=== PATIENT | female | born 1965 | race Native Hawaiian/Other Pacific Islander ===

== ENCOUNTER 2017-02-24 17:00 | Emergency (ER) | payer OTHER ==
[~2017-02-24] VITALS: Ht 170.2 cm; Wt 90.7 kg
== END 2017-02-24 19:24 | disposition home or self-care (01) ==
LOC: ED 17:00
DX: S92.514A Nondisplaced fracture of proximal phalanx of right lesser toe(s), initial encounter for closed fracture (principal); X58.XXXA Exposure to other specified factors, initial encounter
CPT/HCPCS: 99282

== ENCOUNTER 2017-04-27 07:13 | Emergency (ER) | payer OTHER ==
[~2017-04-27] VITALS: Ht 170.2 cm; Wt 95.3 kg
== END 2017-04-27 08:20 | disposition home or self-care (01) ==
LOC: ED 07:13
DX: K08.89 Other specified disorders of teeth and supporting structures (principal)
CPT/HCPCS: 99281

== ENCOUNTER 2017-08-01 21:32 | Inpatient (IN) | payer OTHER ==
[~2017-08-01] VITALS: Ht 157.5 cm; Wt 93.5 kg
[2017-08-01 22:00] VITALS: BP 125/69; TEMP 98.8
[2017-08-01 22:34] LABS: PLATELET COUNT 243 K/uL (152-353)
[2017-08-01 22:45] LABS: POTASSIUM 4.1 mmol/L (3.6-5.2)
--- NOTE | 2017-08-02 00:05 | NUR ---
PATIENT RECEIVED FROM ER VIA WC. ALERT AND ORIENTED X 3. PATIENT GIVEN EDUCATION REGARDING BED CONTROLS AND CALL LIGHT. INSTRUCTED TO KEEP BED IN LOW POSITION. 20G HEP LOCK TO LAC INTACT AND PATENT.
--- NOTE | 2017-08-02 02:00 | NUR ---
PATIENT ASKING ABOUT ANTIBIOTICS BEING ORDERED. NONE WERE FOUND ORDERED. CALLED DR. FUNG TO CLARIFY. HE STATED PATIENT DID NOT NEED ANY ORDERED. THIS INFORMATION WAS GIVEN TO PATIENT. SHE VOICED CONCERN. I SUGGESTED SHE TALK WITH PROVIDER MAKING ROUNDS THIS AM.
[2017-08-02] MEDS ORDERED: METFORMIN ER1000 MG PO (02:44)
[2017-08-02] MEDS ORDERED: LISI20TA31 OR (02:45)
[2017-08-02] MEDS ORDERED: ATEN50TA36 PO (02:46)
[2017-08-02 02:52] VITALS: BP 125/68; TEMP 99.7; Ht 157.5 cm; Wt 93.5 kg
[2017-08-02 04:10] VITALS: BP 100/55; TEMP 98.2
[2017-08-02 05:35] LABS: POTASSIUM 3.8 mmol/L (3.6-5.2); SODIUM 132 mmol/L (136-145)
[2017-08-02 08:00] VITALS: BP 111/46; TEMP 99.1
[2017-08-02 12:00] VITALS: BP 115/48; TEMP 98.7
[2017-08-02 16:00] VITALS: BP 123/66; TEMP 98.1
--- NOTE | 2017-08-02 18:49 | NUR ---
clear liquid diet provided after ct scan as ordered. pt tolerating well. nad noted. family at bs
[2017-08-02 20:00] VITALS: BP 123/69; TEMP 99.6
[2017-08-03] VITALS: BP 120/72; TEMP 98.2
[2017-08-03 04:00] VITALS: BP 111/57; TEMP 98.3
--- NOTE | 2017-08-03 04:39 | NUR ---
08/03/17 RESTING IN BED NAD NOTED.CC
[2017-08-03 08:00] VITALS: BP 136/70; TEMP 98.8
[2017-08-03 10:40] LABS: PLATELET COUNT 200 K/uL (152-353)
[2017-08-03 11:04] LABS: POTASSIUM 4.2 mmol/L (3.6-5.2); SODIUM 133 mmol/L (136-145)
[2017-08-03 12:28] VITALS: BP 105/64; TEMP 98.6
[2017-08-03 16:00] VITALS: BP 123/63; TEMP 99.1
[2017-08-03 20:00] VITALS: BP 142/78; TEMP 99.3
[2017-08-04] VITALS: BP 136/79; TEMP 98.3
[2017-08-04 04:00] VITALS: BP 106/58; TEMP 98.7
[2017-08-04 05:20] LABS: PLATELET COUNT 189 K/uL (152-353)
[2017-08-04 05:57] LABS: POTASSIUM 3.9 mmol/L (3.6-5.2); SODIUM 140 mmol/L (136-145)
[2017-08-04 08:00] VITALS: BP 139/76; TEMP 98.6
[2017-08-04 12:00] VITALS: BP 122/77; TEMP 98.4
[2017-08-04 16:00] VITALS: BP 113/64; TEMP 99.2
--- NOTE | 2017-08-04 16:52 | NUR ---
OK TO GIVE METFORMIN AND JANUVIA AT THIS TIME AFTER CT WITH CONTRAST 48 HOURS AGO PER MARIFER WELLS.
[2017-08-04 20:00] VITALS: BP 115/60; TEMP 99.4
[2017-08-05] VITALS: BP 128/62; TEMP 98.7
[2017-08-05 04:00] VITALS: BP 141/76; TEMP 98.9
[2017-08-05 05:57] LABS: POTASSIUM 3.8 mmol/L (3.6-5.2); SODIUM 138 mmol/L (136-145)
[2017-08-05 06:08] LABS: PLATELET COUNT 190 K/uL (152-353)
[2017-08-05 08:00] VITALS: BP 134/70; TEMP 98.8
[2017-08-05 12:00] VITALS: BP 151/77; TEMP 98.8
[2017-08-05 16:00] VITALS: BP 123/63; TEMP 98
[2017-08-05 20:00] VITALS: BP 152/83; TEMP 99
[2017-08-06] VITALS: BP 106/41; TEMP 99.1
[2017-08-06 03:53] VITALS: BP 114/60; TEMP 99
[2017-08-06 05:37] LABS: PLATELET COUNT 192 K/uL (152-353)
[2017-08-06 06:09] LABS: POTASSIUM 3.8 mmol/L (3.6-5.2); SODIUM 136 mmol/L (136-145)
[2017-08-06 08:00] VITALS: BP 131/77; TEMP 99
[2017-08-06] MEDS ORDERED: LISI20TA11 PO (11:11)
[2017-08-06] MEDS ORDERED: ONDA4TAB3 PO (11:11)
[2017-08-06] MEDS ORDERED: ATOR20TA2 PO (11:11)
[2017-08-06] MEDS ORDERED: PANT40IN PO (11:11)
[2017-08-06] MEDS ORDERED: SITA50TA2 PO (11:11)
[2017-08-06] MEDS ORDERED: ATEN50TA36 PO (11:11)
[2017-08-06] MEDS ORDERED: INSUINJ20 SC (11:11)
--- NOTE | 2017-08-06 11:46 | NUR ---
IV D/C'd. NO REDNESS AND EDEMA OBSERVED. DISCHARGE INSTRUCTION SIGNED AND GIVEN. Pt. EXIT OUT FRONT ENTRANCE.
== END 2017-08-06 11:45 | disposition home or self-care (01) | DRG 439 ==
LOC: ED 21:32 → MED/SURG 23:35
PROVIDERS: Family Medicine
DX: K85.80 Other acute pancreatitis without necrosis or infection (principal); Q79.6 Ehlers-Danlos syndromes; E11.649 Type 2 diabetes mellitus with hypoglycemia without coma; I10 Essential (primary) hypertension; E78.1 Pure hyperglyceridemia
CPT/HCPCS: 36415; 74022; 80048; 80053; 80061; 82150; 82948; 83036; 83690; 85027; 96372; 99283; J1650; J1815; J2175; J2405; J3411; J3490; Q9963

== ENCOUNTER 2019-02-27 08:28 | Outpatient (CLI) | payer OTHER ==
[~2019-02-27 08:28] MED LIST: ATEN50TA36 PO; ATOR20TA2 PO; INSUINJ20 SC; LISI20TA11 PO; LISI20TA31 OR; METFORMIN ER1000 MG PO; ONDA4TAB3 PO; PANT40IN PO; SITA50TA2 PO
[2019-02-27 08:47] LABS: PLATELET COUNT 220 K/uL (152-353)
[2019-02-27 09:05] LABS: POTASSIUM 4.4 mmol/L (3.6-5.2)
== END 2019-02-27 19:10 | disposition home or self-care (01) ==
LOC: LABW 08:28
PROVIDERS: Nurse Practitioner Adult Health
DX: I10 Essential (primary) hypertension (principal); E11.9 Type 2 diabetes mellitus without complications; E78.49 Other hyperlipidemia; E05.80 Other thyrotoxicosis without thyrotoxic crisis or storm
CPT/HCPCS: 36415; 80053; 80061; 83036; 84436; 84443; 84479; 84681; 85027; 85651

== ENCOUNTER 2019-03-09 13:31 | Emergency (ER) | payer OTHER ==
[~2019-03-09] VITALS: Ht 170.2 cm; Wt 89.8 kg
[2019-03-09 13:59] VITALS: BP 145/90; TEMP 97.9
== END 2019-03-09 15:30 | disposition home or self-care (01) ==
LOC: ED 13:31
DX: R51 Headache (principal); K08.89 Other specified disorders of teeth and supporting structures
CPT/HCPCS: 99282

== ENCOUNTER 2019-03-11 08:36 | Emergency (ER) | payer OTHER ==
[~2019-03-11] VITALS: Ht 170.2 cm; Wt 89.8 kg
[2019-03-11 08:49] VITALS: TEMP 97.2
[2019-03-11 09:37] VITALS: BP 126/78
== END 2019-03-11 09:35 | disposition home or self-care (01) ==
LOC: ED 08:36
DX: K04.7 Periapical abscess without sinus (principal); L03.211 Cellulitis of face
CPT/HCPCS: 96372; 99282; J0696

== ENCOUNTER 2019-05-29 08:04 | Outpatient (CLI) | payer OTHER ==
[2019-05-29 10:10] LABS: PLATELET COUNT 247 K/uL (152-353)
[2019-05-29 10:31] LABS: POTASSIUM 4.8 mmol/L (3.6-5.2)
== END 2019-05-29 22:57 | disposition home or self-care (01) ==
LOC: LABW 08:04
PROVIDERS: Nurse Practitioner Adult Health
DX: I10 Essential (primary) hypertension (principal); Z72.0 Tobacco use; E11.65 Type 2 diabetes mellitus with hyperglycemia; E78.49 Other hyperlipidemia; K21.9 Gastro-esophageal reflux disease without esophagitis; K05.5 Other periodontal diseases; E66.01 Morbid (severe) obesity due to excess calories; F32.89 Other specified depressive episodes
CPT/HCPCS: 36415; 80053; 82306; 83036; 84436; 84443; 84479; 85027

== ENCOUNTER 2019-08-24 09:15 | Outpatient (CLI) | payer OTHER ==
[2019-08-24 10:08] LABS: PLATELET COUNT 230 K/uL (152-353)
[2019-08-24 10:37] LABS: POTASSIUM 4.6 mmol/L (3.6-5.2); SODIUM 141 mmol/L (136-145)
== END 2019-08-24 19:23 | disposition home or self-care (01) ==
LOC: LABW 09:15
PROVIDERS: Nurse Practitioner Adult Health
DX: I10 Essential (primary) hypertension (principal); Z72.0 Tobacco use; E11.65 Type 2 diabetes mellitus with hyperglycemia; E78.49 Other hyperlipidemia
CPT/HCPCS: 36415; 80053; 83036; 84436; 84443; 84479; 85027

== ENCOUNTER 2019-11-16 08:46 | Outpatient (CLI) | payer OTHER ==
[2019-11-16 09:03] LABS: PLATELET COUNT 237 K/uL (152-353)
[2019-11-16 11:01] LABS: POTASSIUM 4.6 mmol/L (3.6-5.2); SODIUM 140 mmol/L (136-145)
== END 2019-11-16 19:07 | disposition home or self-care (01) ==
LOC: LABW 08:46
PROVIDERS: Nurse Practitioner Adult Health
DX: I10 Essential (primary) hypertension (principal); Z72.0 Tobacco use; E78.49 Other hyperlipidemia; E11.65 Type 2 diabetes mellitus with hyperglycemia; E66.01 Morbid (severe) obesity due to excess calories; F33.8 Other recurrent depressive disorders; M54.5 Low back pain
CPT/HCPCS: 36415; 80053; 80061; 83036; 84436; 84443; 84479; 85002; 85027; 85610

== ENCOUNTER 2020-03-22 08:45 | Outpatient (CLI) | payer OTHER ==
[2020-03-22 09:36] LABS: POTASSIUM 4.1 mmol/L (3.6-5.2); SODIUM 140 mmol/L (136-145)
[2020-03-22 09:52] LABS: PLATELET COUNT 260 K/uL (152-353)
== END 2020-03-22 22:29 | disposition home or self-care (01) ==
LOC: LABW 08:45
PROVIDERS: Nurse Practitioner Adult Health
DX: I10 Essential (primary) hypertension (principal); Z72.0 Tobacco use; E78.49 Other hyperlipidemia; E11.65 Type 2 diabetes mellitus with hyperglycemia
CPT/HCPCS: 36415; 80053; 80061; 83036; 84443; 85027

== ENCOUNTER 2020-09-26 10:25 | Outpatient (CLI) | payer OTHER | END 2020-09-26 20:30 | disposition home or self-care (01) | LOC: RAD 10:25 | PROVIDERS: ATTEND Nurse Practitioner Adult Health | DX: M54.2 Cervicalgia (principal) ==